=== PATIENT | male | born 1955 | race Caucasian/White ===

== ENCOUNTER 2017-03-01 05:45 | Day surgery (SDC) | payer OTHER ==
[~2017-03-01] VITALS: Ht 182.9 cm; Wt 93.0 kg
[~2017-03-01 05:45] MED LIST: ADVIL200 MG PO; ALEVE220 MG PO; FLEXERIL10 MG PO; HYDROCODON-ACE1 EAC8 PO; LIPITOR40 MG PO; NAPROXEN500 MG PO; NORCO 5-325 TA1 EACH PO
--- NOTE | 2017-03-01 09:40 | NUR ---
03/01/17 0940 Kristi Awad 0938: 3 VEIW BILAT X RAY DONE.
--- NOTE | 2017-05-04 14:26 | OR ---
[facility] [address], [place] [address] Signed DATE OF PROCEDURE: 03/01/17 PREOPERATIVE DIAGNOSIS Hallux rigidus with exostosis formation, bilateral first metatarsophalangeal joint. POSTOPERATIVE DIAGNOSIS Hallux rigidus with exostosis formation, bilat eral first metatarsophalangeal joint. PROCEDURE PERFORMED Bilateral cheilectomy at the first metatarsophalangeal joint. HEALTH CARE MANAGER SURGEON: Stefano Healy DPM. ANESTHESIOLOGIST: Anesthesia was provided by Stefano Kong CRNA ANESTHESIA General with local consisting of 20 mL of 1:1 mix of 0.5% Ropivacaine and 3% Lidocaine plain. HEMOSTASIS: With bilateral ankle tourniquets. ESTIMATED BLOOD LOSS: Less than 5 cc or minimal. MATERIALS UTILIZED: Bone wax, 3-0 Vicryl, 4-0 Vicryl, and 5-0 nylon. PROCEDURE IN DETAIL The patient was brought into the operating room and placed upon the operating table in the supine position. Following IV sedation, the above local anesthesia administered above the patient's right first metatarsal base region. The feet w ere then scrubbed, prepped, and draped in usual sterile technique. Esmarch bandage was then utilized to exsanguinate the patient's right foot. Then, this Esmarch was left wrapped around the ankle to act as tourniquet. Attention was then directed to the do r jocy aspect of the first metatarsophalangeal joint where approximately a 5-cm linear incision was performed both parallel and medial to the tendon of the extensor hallucis longus and extended over the joint area. Incision was then deepened through the subc u taneous tissue. Care has been taken to identify and retract vital neurovascular structures. Bleeders were cauterized and ligated as necessary. A #64 blade was then utilized to perform a linear capsulotomy and the joint capsule was reflected both medially a nd laterally to expose the articular surface at the surgical site. A large bone fragment that was attached by fibrotic tissue to the dorsal joint capsule region was noted. This lesion was semi-mobile, well encapsulated, had normal bony coloration and trab e culation and bone density and seemed to be noninvasive to the surrounding tissue and seemed to be a Electronically Signed By: PAMELLA JANG DPM 05/04/17 1426 PATIENT NAME: RICHMOND WILEY OPERATIVE REPORT DATE OF : 55 PHYSICIAN: PAMELLA JANG DPM REPORT #: [id number] REPORT IS CONFIDENTIAL AND NOT TO BE RELEASED WITHOUT AUTHORIZATION [facility] [address], [place] [address] Signed component of the arthritic disease. This was excised. Bony ridging was observed on the dorsal and medial expect of the first metatarsal and adjacent phalan x basis with some lipping also noted on the dorsal lateral aspect of the joint. An osteotome and mallet were utilized to resect. The large portion of the dorsal exostosis of the first metatarsal followed by a sagittal saw and a bone rasp. The area was then flushed with a copious amount of sterile normal saline. Attention was directed to the base of the proximal phalanx. Here again, some of the cupping and exostosis formation was reduced utilizing a rongeur and then also the bone rasp. Inspection of intraart i cular cartilage found viable cartilage covering the majority greater than 90% of the articular surface; however, the cartilage has significant thinning present with removal of the exostosis, a slight V formation was performed with osteotomy over the dorsa l aspect of this joint region to reduce impingement during normal articulation. Bone wax was then applied to the row bone on the dorsal aspect to help prevent bleeding and hopefully reduce exostosis regrowth. The area was then flushed again. Range of motio n was observed to be adequate and greater than 35 degrees with the forefoot not being loaded. The joint capsule was trimmed, redundant, and thickened joint capsule, was lightly debrided. The joint capsule was then sutured and closed utilizing 3-0 Vicryl, s u bcutaneous tissue closed utilizing 4-0 Vicryl, and the skin was reapproximated and closed utilizing 5-0 nylon in a continuous interlocking suture technique. Postoperative injection consisting of 4.5 mL of 0.5% Ropivacaine and 0.5 mL of Dexamethasone phosp h ate 4 mg/mL was injected about the surgical site. Mepilex dressing was then applied followed by gauze, cast pad, and Coban. The ankle tourniquet was removed and prompt hyperemic response was noted to all digits of the patient's right foot. The same proced u re was performed then on the patient's left foot and closed in the same manner. It should be noted that more degenerative changes were observed with the left foot, loose bodies of bone that were around the dorsal and dorsal lateral aspect of the joint, nu m bered at least 3 loose bodies. More decay was also observed at the metatarsal head consistent with chronic inflammation and degenerative arthritic conditions. The articular cartilage on this area through the main body of the joint seemed to be adequate bu t thinned, but covered the majority of the articular surface. Upon completion of this surgical procedure, the ankle tourniquet was removed and again hyperemic response was noted to the all digits of the left foot. The patient was then [facility] by anesthesia with vital signs stable. The patient had tolerated both the procedure and the anesthesia well and following the period of postoperative monitoring, the patient was discharged to home with both written and oral instructions. YAKOV Guerreroally Signed By: PAMELLA JANG DPM 05/04/17 1426 PATIENT NAME: RICHMOND WILEY OPERATIVE REPORT DATE OF : 55 PHYSICIAN: PAMELLA JANG DPM REPORT #: [id number] REPORT IS CONFIDENTIAL AND NOT TO BE RELEASED WITHOUT AUTHORIZATION [address] [place], [place] [address] Signed FELIZ/Felicita /[id number] cc: Carlos Lepe MD Electronically Signed By: PAMELLA JANG DPM 05/04/17 1426 PATIENT NAME: RICHMOND WILEY OPERATIVE REPORT DATE OF : 55 PHYSICIAN: PAMELLA JANG DPM REPORT #: [id number] REPORT IS CONFIDENTIAL AND NOT TO BE RELEASED WITHOUT AUTHORIZATION
== END 2017-03-01 11:20 | disposition home or self-care (01) ==
LOC: OPS 05:45 → DS 05:45 → OPS 06:45
PROVIDERS: Podiatrist Foot & Ankle Surgery
PROC: 0QBQ0ZZ Excision of Right Toe Phalanx, Open Approach (ICD-10-PCS; 2017-03-01)
PROC: 0QBR0ZZ Excision of Left Toe Phalanx, Open Approach (ICD-10-PCS; principal; 2017-03-01 06:45)
DX: M20.21 Hallux rigidus, right foot (principal); M20.22 Hallux rigidus, left foot; M25.774 Osteophyte, right foot; M25.775 Osteophyte, left foot
CPT/HCPCS: 01480; 73630; J0690; J1100; J1885; J2704; J2795; J3010; J7120

== ENCOUNTER 2017-09-13 08:55 | Day surgery (SDC) | payer OTHER ==
[~2017-09-13] VITALS: Ht 182.9 cm; Wt 97.1 kg
--- NOTE | 2017-09-13 11:15 | NUR ---
09/13/17 Parag5 Kristi Awad 1054 PT ARRIVED TO PACU DROWSY AND RESP EVEN UNLABORED. ON RA. 1115 PT SITTING UP IN BED AND DRINKING JUICE AND COFFEE. PT AWAKE AND ORIENTED X3.
[2017-09-13] MEDS ORDERED: NORCO 5-325 TA1 EACH PO (11:32)
--- NOTE | 2017-09-14 07:54 | OR ---
[facility] [place] [facility] [address] [place], [place] [address] Signed DATE OF OPERATION: SURGEON: Sami Lucas MD PREOPERATIVE DIAGNOSIS: Left perineal cyst versus [id number]. 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 PROCEDURE: Incision and drainage of left perineal cyst with curettage of granulation tissue. ESTIMATED BLOOD LOSS: None. INDICATIONS: Xavier is a 61-year-old gentleman with known in our office previously. On midway between the base of his scrotum and the anus, he has had area that has been draining just to the left of the midline. It has come and gone several times. We thought it might be a small cyst versus a [id number]. We actually took him for an exam under anesthesia back in August 2016. At that time, we could not even find the area on the perineum. We looked around the anterior midline and posterior midline and never could convince ourselves he had a [id number]. He had a few perianal comedones and we removed those. He had been doing fine and then he called me at the office and said it opened up again, so we had him come in the office. Just a couple of days ago, we took him into our treatment room, injected some local anesthetic and we looked at it, but our probe traveled almost 3 cm and it was headed posteriorly back towards the anus. Consequently, I told Xavier we had to take him over the operating room and we have to do this with better lighting and we have to see if it travels all the way to the anterior midline as a [id number]. He knows we have to unroof the whole thing and curettage all the granulation tissue until completely gone and they have to heal in secondarily. If it does involve a fistula, we will also have to divide some of the anal sphincter muscles. He had expressed understanding and wished to proceed. PROCEDURE NOTE: Xavier and I both identified the opening on his perineum in our preop area. We circled that appropriately. After this, Xavier was taken into the operating room and given a saddle block by our nurse grain buyer. He was then rotated into the prone neymar-knife position with appropriate padding and monitoring. He was given IV sedation per our nurse grain buyer during the procedure as well. He was also given preoperative Electronically Signed By: SAMI LUCAS MD 09/14/17 0754 PATIENT NAME: XAVIER WILEY OPERATIVE REPORT DATE OF : 55 REPORT #: [id number] PHYSICIAN: SAMI LUCAS MD PCP: ERICKA COOK MD REPORT IS CONFIDENTIAL AND NOT TO BE RELEASED WITHOUT AUTHORIZATION [facility] [address] [place], [place] [address] Signed antibiotics along with his subcutaneous heparin. SCDs were utilized. He was then prepped and draped in the usual sterile fashion. With the help of my parking assistant, we then looked and found opening and we unroofed the opening very carefully and we followed it back just to the left of the raphae of the perineum and then it stopped just approach the anoderm. We looked at it very carefully and indeed this was all subcutaneous and looks to be a perineal cyst/abscess. We used the cautery and we removed all the granulation tissue and we left the wound open to heal in secondarily. We injected local anesthetic in around the lesion. The lesion was then covered with some dry gauze and underwear and we rotated Xavier back into the supine position on his hospital bed and he was taken into recovery room in stable condition. Sami Lucas MD [facility] /[id number] cc: DO Sami Gonsalez MD Frank E Szumski, DO Copies: JEWELS PARRA ANDREW L MD SZUMSKI, FRANK E DO ~ Electronically Signed By: SAMI LUCAS MD 09/14/17 0754 PATIENT NAME: XAVIER WILEY OPERATIVE REPORT DATE OF : 55 REPORT #: [id number] PHYSICIAN: SAMI LUCAS MD PCP: ERICKA COOK MD REPORT IS CONFIDENTIAL AND NOT TO BE RELEASED WITHOUT AUTHORIZATION
== END 2017-09-13 11:50 | disposition home or self-care (01) ==
LOC: OPS 08:55 → DS 08:55
PROVIDERS: Colon & Rectal Surgery
PROC: 0J9B0ZZ Drainage of Perineum Subcutaneous Tissue and Fascia, Open Approach (ICD-10-PCS; principal; 2017-09-13 10:30)
DX: L72.9 Follicular cyst of the skin and subcutaneous tissue, unspecified (principal); F17.210 Nicotine dependence, cigarettes, uncomplicated
CPT/HCPCS: 00902; J0694; J1644; J2250; J2704; J7120

== ENCOUNTER 2025-04-27 10:24 | Emergency (ER) | payer OTHER ==
[~2025-04-27] VITALS: Ht 182.9 cm; Wt 102.1 kg
[~2025-04-27 10:24] MED LIST changes: +CIALIS5 MG PO; +CRESTOR10 MG PO; +CYCLOBENZAPRINE10 MG PO
[2025-04-27] MEDS ORDERED: TADALAFIL5 M1 PO (10:39)
[2025-04-27] MEDS ORDERED: EZETIMIBE10 MG PO (10:39)
[2025-04-27] MEDS ORDERED: OMEGA-3 ACID ETH1 GM PO (10:39)
[2025-04-27] MEDS ORDERED: ROSUVASTATIN CA20 MG PO (10:39)
[2025-04-27 11:11] LABS: BASOPHILS 0.8 % (0.2-1.2); EOSINOPHILS 1.1 % (0.8-7.0); LYMPHOCYTES 20.0 % (21.8-53.1); MCH 29.0 PG (25.7-32.2); MCHC 33.3 g/dL (32.3-36.5); MCV 87.1 fL (79.0-92.2); MONOCYTES 4.9 % (5.3-12.2); NEUTROPHILS 72.8 % (34.0-67.9); RBC 5.18 M/uL (4.63-6.08)
[2025-04-27 11:34] LABS: ALT (SGPT) 41.0 U/L (14-59); GLOMERULAR FILTRATION RATE,EST 76.0 mL/min (>60); PROTEIN, TOTAL 7.1 g/dL (6.4-8.2); UREA NITROGEN 17.0 mg/dL (7-18)
[2025-04-27 12:13] VITALS: BP 125/92
[2025-04-27 12:18] LABS: AST (SGOT) 29.0 U/L (15-37)
== END 2025-04-27 12:14 | disposition home or self-care (01) ==
LOC: ED 10:24
PROVIDERS: Emergency Medicine
DX: R53.82 Chronic fatigue, unspecified (principal); F17.200 Nicotine dependence, unspecified, uncomplicated; Z79.899 Other long term (current) drug therapy; Z91.013 Allergy to seafood; Z88.8 Allergy status to other drugs, medicaments and biological substances
CPT/HCPCS: 36415; 80053; 84484; 85025; 99283